=== PATIENT | female | born 1960 | race Caucasian/White ===

== ENCOUNTER 2017-02-16 14:27 | Emergency (ER) | payer BC ==
[2017-02-16 14:57] VITALS: BP 147/90
[2017-02-16] MEDS ORDERED: HYDROmorphone 1 MG/ML Syringe IM ONE (15:00)
[2017-02-16] MEDS ORDERED: Ketorolac 60 MG/2 ML SDV IM ONE (15:01)
--- NOTE | 2017-02-16 15:05 | EDM.PDOC ---
ED HPI GENERAL MEDICAL PROBLEM - General Chief Complaint: Upper Extremity Injury/Pain Stated Complaint: RT SHOULDER NECK AND ARM PAIN Time Seen by Provider: 02/16/17 14:42 Source of Information: Reports: Patient History Limitations: Reports: No Limitations - History of Present Illness INITIAL COMMENTS - FREE TEXT/NARRATIVE: The patient presents with right neck, shoulder and arm pain. This all started 4 days ago. She does not recall and injury. She has some tingling and numbness in her right hand. She has never had any trouble with her neck or arm before. Movement and coughing makes it worse. She has no fever, chills, cough , chest pain, shortness of breath, abdominal pain, nausea or vomiting. Onset: Gradual Duration: Day(s): (4) Location: Reports: Neck, Upper Extremity, Right Quality: Reports: Sharp Severity: Severe Improves with: Reports: Immobilization Worsens with: Reports: Movement Context: Reports: Other (No injury that she knows of) Associated Symptoms: Reports: No Other Symptoms Treatments SWING GRINDER: Reports: Other (see below) Other Treatments SWING GRINDER: ibuprofen Right Shoulder Pain Score (Numeric/FACES): 9 - Related Data Allergies Allergy/AdvReac Type Severity Reaction Status Date / Time aspirin Allergy Severe Swelling Verified 02/16/17 14:34 Home Meds: Home Meds Venlafaxine [Effexor XR] 75 mg PO DAILY 11/07/13 [History] Cyclobenzaprine [Flexeril] 10 mg PO TID PRN #20 tablet 02/16/17 [Rx] oxyCODONE HCl/Acetaminophen [Percocet 5-325 mg Tablet] 1 - 2 each PO Q6HR PRN # 20 tablet 02/16/17 [Rx] Past Medical History - Past Health History Medical/Surgical History: Denies 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: - Past Surgical History Female Surgical History: Reports: Breast Biopsy, Hysterectomy Social & Family History - Tobacco Use Smoking Status *Q: Current Every Day Smoker Years of Tobacco use: 35 Packs/Tins Daily: 0.3 - Recreational Drug Use Recreational Drug Use: No Review of Systems - Review of Systems Review Of Systems: See Below Constitutional: Reports: No Symptoms Eyes: Reports: No Symptoms Ears: Reports: No Symptoms Nose: Reports: No Symptoms Mouth/Throat: Reports: No Symptoms Respiratory: Reports: No Symptoms Cardiovascular: Reports: No Symptoms GI/Abdominal: Reports: No Symptoms Genitourinary: Reports: No Symptoms Musculoskeletal: Reports: Neck Pain, Other (Right arm pain) ED EXAM, GENERAL - Physical Exam Exam: See Below Exam Limited By: No Limitations General Appearance: Alert, No Apparent Distress Ears: Normal External Exam Nose: Normal Inspection Head: Atraumatic, Normocephalic Neck: Other (Pain upon palpation to the right side of her neck with increase pain with axial loading and flexion to the right. Good sensation on gross exam and strength to her right arm.) Respiratory/Chest: No Respiratory Distress, Lungs Clear, Normal Breath Sounds Cardiovascular: Regular Rate, Rhythm, No Edema, No Murmur GI/Abdominal: Soft, Non-Tender, No Organomegaly, No Mass Back Exam: Normal Inspection Course - Vital Signs Last Recorded V/S: Last Vital Signs Temp 98.8 F 02/16/17 14:34 Pulse 77 02/16/17 14:34 Resp 16 02/16/17 14:34 BP 147/90 H 02/16/17 14:34 Pulse Ox 99 02/16/17 14:34 - Re-Assessments/Exams Free Text/Narrative Re-Assessment/Exam: 02/16/17 15:07 I ordered dilaudid 1mg IM and toradol 60mg IM. I will get her on some flexeril and percocet. I will also have her take some aleve or ibuprofen. I will put an order in for an MRI. Departure - Departure Time of Disposition: 15:10 Disposition: Home, Self-Care 01 Condition: Good Clinical Impression: Cervical radiculopathy - Discharge Information Prescriptions: oxyCODONE HCl/Acetaminophen [Percocet 5-325 mg Tablet] 1 - 2 each PO Q6HR PRN # 20 tablet PRN Reason: Pain Cyclobenzaprine [Flexeril] 10 mg PO TID PRN #20 tablet PRN Reason: Pain Referrals: Janett Henao DO [Primary Care Provider] - 1 Week Additional Instructions: I ordered an MRI of your neck. Our radiology department will call you with a time. Take the flexeril every 8 hours as needed for pain. Take the percocet as needed for pain every 6 hours. You may also take an antiinflammatory such as motrin or aleve. Follow up with Dr Henao in 1 week. Please return if you are worse.
== END 2017-02-16 15:30 | disposition home or self-care (01) ==
LOC: JD.ED 14:27
DX: M54.12 Radiculopathy, cervical region (principal); F17.210 Nicotine dependence, cigarettes, uncomplicated; Z79.899 Other long term (current) drug therapy; Z88.6 Allergy status to analgesic agent
CPT/HCPCS: 96372; 99283; J1170; J1885

== ENCOUNTER 2017-08-07 12:53 | Emergency (ER) | payer OTHER, BC ==
[2017-08-07 13:12] VITALS: BP 154/97
[2017-08-07] MEDS ORDERED: Acetaminophen/oxyCODONE 325-5 MG Tab PO ONE (13:37)
[2017-08-07] MEDS ORDERED: Ondansetron 4 MG Tab.DIS PO ONE (13:37)
--- NOTE | 2017-08-07 13:52 | EDM.PDOC ---
ED HPI GENERAL MEDICAL PROBLEM - General Chief Complaint: Head Injury Stated Complaint: FALL/NOSE INJURY Time Seen by Provider: 08/07/17 13:40 Source of Information: Reports: Patient History Limitations: Reports: No Limitations - History of Present Illness INITIAL COMMENTS - FREE TEXT/NARRATIVE: 56-year-old female presents for evaluation and treatment of injury sustained from a fall. Patient was at work. She states that she slipped on some ice about an hour prior to arrival. She states she landed on her bilateral knees and face. She has abrasions, bruising and swelling to her forehead, nose and bilateral knees. She is currently complaining and pain of the knees, vision changes, difficulty walking, headache, nausea and one episode of vomiting. No loss of consciousness. No chest pain, shortness of breath, abdominal pain, neck pain, pain to the arms, nosebleed or loose teeth. Patient reports pain with ambulation due to the soreness in her knees. She reports that her vision is blurry. Tetanus is up-to-date. 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 Denies: Nosebleed Respiratory: Denies: Shortness of Breath Cardiovascular: Denies: Chest Pain GI/Abdominal: Reports: Nausea, Vomiting. Denies: Abdominal Pain Musculoskeletal: Reports: Joint Pain (bilateral knees). Denies: Neck Pain, Arm Pain Neurological: Reports: Headache, Difficulty Walking. Denies: Syncope ED EXAM, HEAD INJURY - Physical Exam Exam: See Below Exam Limited By: No Limitations General Appearance: Alert, WD/WN, Mild Distress Head: Facial Ecchymosis (forehead (baseball sized), nose), Facial Swelling ( forehead, nose), Facial Tenderness (forehead, nose). No: Active Bleeding, Sexton's Sign, Raccoon Eyes Nexus Criteria: No: Posterior, Midline Cervical Tenderness, Evidence of Intoxication, Altered Level of Consciousness, Focal Neurological Deficit, Painful Distraction Injuries Eyes: Bilateral Eye: EOMI, Normal Inspection, PERRL Ears: Normal External Exam Nose: No Blood, Nasal Tenderness, Nasal Ecchymosis. No: Nasal Deformity Throat/Mouth: Normal Inspection, Normal Lips, Normal Oropharynx, Normal Voice, No Airway Compromise Neck: Non-Tender, Full Range of Motion, Normal Alignment, Normal Inspection Respiratory: No Respiratory Distress, Lungs Clear, Normal Breath Sounds Cardiovascular: Normal Peripheral Pulses, Regular Rate, Rhythm, No Murmur GI/Abdominal Exam: Normal Bowel Sounds, Soft, Non-Tender Back Exam: CVA Tenderness (R) Extremities: Other (swelling, bruising and superficial abrasion to thebilteral knees) Neurologic: Alert, Normal Mood/Affect Skin: Normal Color, Warm/Dry - Niraj Coma Score Best Eye Response (George): (4) Open Spontaneously Best Verbal Response (George): (5) Oriented Best Motor Response (Niraj): (6) Obeys Commands Course - Vital Signs Last Recorded V/S: Last Vital Signs Temp 37.0 C 08/07/17 13:09 Pulse 74 08/07/17 13:09 Resp 16 08/07/17 13:09 BP 154/97 H 08/07/17 13:09 Pulse Ox 97 08/07/17 13:09 - Orders/Labs/Meds Meds: Medications Discontinued Medications Generic Name Dose Route Start Last Admin Trade Name Freq PRN Reason Stop Dose Admin Ondansetron HCl 4 mg 08/07/17 13:37 08/07/17 14:16 Zofran Odt PO 08/07/17 13:38 4 mg ONETIME ONE Administration Oxycodone/Acetaminophen 1 tab 08/07/17 13:37 08/07/17 14:16 Percocet 325-5 Mg PO 08/07/17 13:38 1 tab ONETIME ONE Administration - Radiology Interpretation Free Text/Narrative:: Head CT Technique: Multiple axial sections through the brain were obtained. Intravenous contrast was not utilized. Comparison: No previous intracranial imaging. Findings: Ventricles along with basal cisterns and sulci over convexities are within normal limits for the patient's age. No abnormal parenchymal densities are seen. No evidence of intracranial hemorrhage. No midline shift or mass effect is seen. Bone window settings were reviewed which shows the visualized sinuses to appear clear. No acute calvarial abnormality is identified. Impression: 1. Nothing acute is identified on noncontrast head CT study. Right knee: AP, lateral and sunrise patellar views of the right knee were obtained. Comparison: No previous study. Medial and lateral joint spaces are maintained in height. No joint effusion is seen. Patellofemoral joint appears within normal limits. No fracture or other bony abnormality is appreciated. Impression: 1. No abnormality is seen on three-view right knee exam. Left knee: AP, lateral and sunrise patellar views of the left knee were obtained. Comparison: No previous knee exam. Medial and lateral joint spaces are maintained in height. Patellofemoral joint appears within normal limits. No fracture or other bony abnormality is seen. Impression: 1. No abnormality is identified on left knee exam. - Re-Assessments/Exams Free Text/Narrative Re-Assessment/Exam: 08/07/17 15:27 I reviewed the imaging with the patient. Pain improved with the by mouth Percocet. Nausea resolved. We will discharge her home at this time. Discharge instructions as documented. Departure - Departure Time of Disposition: 15:28 Disposition: Home, Self-Care 01 Condition: Fair Clinical Impression: Abrasion, Contusion - Discharge Information Instructions: Abrasion, Contusion Referrals: PCP,None [Primary Care Provider] - Harjeet Rogers MD [Physician] - Forms: ED Department Discharge Additional Instructions: Wash the wound with gentle soap and water twice a day. By antibacterial ointment as Neosporin or bacitracin to the once twice a day. Ice the sore area 4-6 times a day for 10-15 minutes. [id number] Tylenol or Motrin as needed for pain relief. you will be sore for the next 1-2 weeks. The first 3 days will be the worst. Follow-up with Dr. Rogers at [facility] if not much better within 2 weeks. Call [phone] schedule with him. please return to the ER if your symptoms change or worsen.
--- NOTE | 2017-08-07 14:06 | CT ---
Head CT Technique: Multiple axial sections through the brain were obtained. Intravenous contrast was not utilized. Comparison: No previous intracranial imaging. Findings: Ventricles along with basal cisterns and sulci over convexities are within normal limits for the patient's age. No abnormal parenchymal densities are seen. No evidence of intracranial hemorrhage. No midline shift or mass effect is seen. Bone window settings were reviewed which shows the visualized sinuses to appear clear. No acute calvarial abnormality is identified. Impression: 1. Nothing acute is identified on noncontrast head CT study. Diagnostic code #1
--- NOTE | 2017-08-07 15:16 | CR ---
Left knee: AP, lateral and sunrise patellar views of the left knee were obtained. Comparison: No previous knee exam. Medial and lateral joint spaces are maintained in height. Patellofemoral joint appears within normal limits. No fracture or other bony abnormality is seen. Impression: 1. No abnormality is identified on left knee exam. Diagnostic code #1
--- NOTE | 2017-08-07 15:16 | CR ---
Right knee: AP, lateral and sunrise patellar views of the right knee were obtained. Comparison: No previous study. Medial and lateral joint spaces are maintained in height. No joint effusion is seen. Patellofemoral joint appears within normal limits. No fracture or other bony abnormality is appreciated. Impression: 1. No abnormality is seen on three-view right knee exam. Diagnostic code #1
== END 2017-08-07 15:35 | disposition home or self-care (01) ==
LOC: JD.ED 12:53
DX: S00.83XA Contusion of other part of head, initial encounter (principal); S80.02XA Contusion of left knee, initial encounter; S80.01XA Contusion of right knee, initial encounter; Y99.0 Civilian activity done for income or pay; W00.0XXA Fall on same level due to ice and snow, initial encounter; F17.210 Nicotine dependence, cigarettes, uncomplicated; Z88.6 Allergy status to analgesic agent
CPT/HCPCS: 70450; 73562; 99284; A9270; 99283

== ENCOUNTER 2018-10-29 16:51 | Emergency (ER) | payer OTHER, BC ==
[2018-10-29 17:10] VITALS: BP 160/96
[2018-10-29] MEDS ORDERED: Ketorolac 30 MG/ML SDV IM ONE (17:20)
[2018-10-29] MEDS ORDERED: Orphenadrine 100 MG Tab.ER PO ONE (17:21)
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
--- NOTE | 2018-10-30 09:00 | CT ---
CT cervical spine Technique: Multiple axial sections were obtained from above C1 inferiorly to the bottom of T2. Reconstructed sagittal and coronal images were reviewed. Comparison: Prior MRI cervical spine study of 02/18/17. Findings: Mild degenerative change is noted between the dens and anterior arch of C1. Vertebral body heights and disc spaces are maintained. Vertebral bodies and posterior arches are intact with no fracture being seen. No bony central or bony neural foraminal stenosis There are slight posterior osteophytes being seen as well as degenerative spurring within the uncovertebral joints at C4-C5 and C5-C6. No abnormal subluxation is seen on the reconstructed sagittal images. Visualized soft tissues are within normal limits. Slight scarring is noted within both lung apices. Impression: 1. Mild degenerative change. Other incidental findings. 2. Nothing acute is appreciated on CT study of the cervical spine. Diagnostic code #2 I agree with preliminary report from [facility], finalized on 10/29/18, 7:35 PM Central Time
== END 2018-10-29 18:55 | disposition home or self-care (01) ==
LOC: JD.ED 16:51
DX: M54.2 Cervicalgia (principal); R51 Headache; M25.562 Pain in left knee; F17.210 Nicotine dependence, cigarettes, uncomplicated; Z88.6 Allergy status to analgesic agent; Z90.710 Acquired absence of both cervix and uterus; V49.49XA Driver injured in collision with other motor vehicles in traffic accident, initial encounter
CPT/HCPCS: 72125; 96372; 99284; A9270; J1885; 99283

== ENCOUNTER 2023-02-21 09:56 | Emergency (ER) | payer BC, MEDICAID, OTHER ==
[2023-02-21] MEDS ORDERED: Sodium Chloride 0.9% 10 ML Syringe FLUSH PRN (11:38)
[2023-02-21 11:52] LABS: BASOPHILS ABSOLUTE AUTO 0.1 K/mm3 (0.0-0.2); BASOPHILS PERCENT AUTO 1.2 % (0.0-1.0); EOSINOPHILS ABSOLUTE AUTO 0.4 K/mm3 (0.0-0.4); EOSINOPHILS PERCENT AUTO 6.6 % (0.0-6.0); HEMATOCRIT 46.5 % (37.0-47.0); HEMOGLOBIN 15.6 gm/dl (12.0-16.0); IMMATURE GRAN ABSOLUTE AUTO 0.03 K/mm3 (0.00-0.05); IMMATURE GRAN PERCENT AUTO 0.5 % (0.0-0.4); LYMPHOCYTES ABSOLUTE AUTO 1.5 K/mm3 (1.0-4.8); LYMPHOCYTES PERCENT AUTO 25.9 % (24.0-44.0); MEAN CORPUSCULAR HEMOGLOBIN 30.8 pg (28.0-32.0); MEAN CORPUSCULAR HGB CONC 33.5 g/dl (32.0-36.0); MEAN CORPUSCULAR VOLUME 91.7 fl (83.0-99.0); MEAN PLATELET VOLUME 10.7 fl (9.4-12.3); MONOCYTES ABSOLUTE AUTO 0.4 K/mm3 (0.0-0.8); MONOCYTES PERCENT AUTO 6.9 % (0.0-8.0); NEUTROPHILS ABSOLUTE AUTO 3.5 K/mm3 (1.8-7.7); NEUTROPHILS PERCENT AUTO 58.9 % (41.0-71.0); PLATELET COUNT,PLT 306 K/mm3 (150-400); RED BLOOD CELL COUNT 5.07 M/mm3 (4.10-5.30); WHITE BLOOD CELL COUNT,WBC 5.91 K/mm3 (3.9-11.3)
[2023-02-21] MEDS ORDERED: amLODIPine 5 MG Tab PO ONE (12:01)
[2023-02-21 12:02] LABS: A/G RATIO 0.8 (1-2); ALBUMIN 3.9 g/dl (3.4-5.0); ANION GAP 15.9 (5-15); BILIRUBIN TOTAL 0.5 mg/dL (0.2-1.0); BUN/CREATININE RATIO 14.4 (14-18); C-REACTIVE PROTEIN 1.6 mg/dL (<1.0); CALCIUM 9.3 mg/dL (8.5-10.1); CREATININE 0.9 mg/dL (0.55-1.02); EST CRCL DRUG DOSING (CG) 63.83 mL/min; POTASSIUM,K 3.9 mEq/L (3.5-5.1); PROTEIN TOTAL,TP 8.8 g/dl (6.4-8.2)
[2023-02-21 12:52] LABS: CORONAVIRUS COVID-19 NAA NEGATIVE (NEGATIVE); INFLUENZA A NAA NEGATIVE (NEGATIVE)
[2023-02-21 14:01] VITALS: BP 140/88; PULSE 74
== END 2023-02-21 14:00 | disposition home or self-care (01) ==
LOC: JD.ED 09:56
DX: R07.89 Other chest pain (principal); I10 Essential (primary) hypertension; Z87.891 Personal history of nicotine dependence; Z88.8 Allergy status to other drugs, medicaments and biological substances; Z79.899 Other long term (current) drug therapy; Z20.822 Contact with and (suspected) exposure to COVID-19
CPT/HCPCS: 0240U; 36415; 71046; 80053; 84484; 85025; 85379; 86140; 99285; A9270